=== PATIENT | female | born 1950 | race Caucasian/White ===

== ENCOUNTER 2023-09-05 15:27 | Outpatient (CLI) | payer MEDICARE, OTHER, SELFPAY | END 2023-09-05 15:28 | disposition home or self-care (01) | PROVIDERS: PCP Nurse Practitioner Family; Visit Provider Nurse Practitioner Family | DX: I48.91 Unspecified atrial fibrillation (principal); N30.90 Cystitis, unspecified without hematuria; B96.1 Klebsiella pneumoniae [K. pneumoniae] as the cause of diseases classified elsewhere; Z13.29 Encounter for screening for other suspected endocrine disorder; Z13.21 Encounter for screening for nutritional disorder | CPT/HCPCS: 80048; 83735; 84443; 87086; 87186 ==

== ENCOUNTER 2023-09-10 15:48 | Outpatient (CLI) | payer MEDICARE, OTHER, SELFPAY ==
--- NOTE | 2023-09-10 16:00 | CRLHL7_ITS ---
For Patients: As a result of the Century Cures Act, medical imaging exams and procedure reports are released immediately into your electronic medical record. You may view this report before your referring provider. If you have questions, please contact your health care provider. INDICATION: Amnesia. Fall. TECHNIQUE: Noncontrast CT images of the brain. COMPARISON: None. FINDINGS: Uvph-hr-yznbznrm diffuse cerebral volume loss. No mass effect or midline shift. The matthews-white differentiation is maintained. Small focal hypoattenuation at the right temporal pole may represent a small arachnoid cyst or encephalomalacia. No acute intracranial hemorrhage or pathologic extra-axial fluid collection. Intracranial atherosclerotic calcifications. Thinning of the ocular lenses. The calvarium is intact. Postsurgical changes of endoscopic sinus surgery. Complete opacification of the right frontal sinus and frontal recesses. Moderate opacification of ethmoid air cells. Mastoid air cells are clear. IMPRESSION: 1. No intracranial hemorrhage or mass effect. 2. Severe opacification of the right frontal sinus and frontal recesses. Please note that all CT scans at this facility use dose modulation, iterative reconstruction, and/or weight-based dosing when appropriate to reduce radiation dose to as low as reasonably achievable. Dictated by Sukhi Potts MD @ 09/11/2023 10:08:50 AM (Electronically Signed)
== END 2023-09-10 15:49 | disposition home or self-care (01) ==
PROVIDERS: PCP Nurse Practitioner Family; Visit Provider Nurse Practitioner Family
DX: R41.3 Other amnesia (principal)
CPT/HCPCS: 70450

== ENCOUNTER 2023-09-18 15:13 | Outpatient (CLI) | payer MEDICARE, OTHER, SELFPAY | END 2023-09-18 15:14 | disposition home or self-care (01) | PROVIDERS: PCP Nurse Practitioner Family; Visit Provider Nurse Practitioner Family | DX: I48.11 Longstanding persistent atrial fibrillation (principal); Z13.21 Encounter for screening for nutritional disorder; Z13.818 Encounter for screening for other digestive system disorders | CPT/HCPCS: 80076; 82607; 82728; 83540; 83550 ==

== ENCOUNTER 2023-09-26 14:50 | Outpatient (CLI) | payer MEDICARE, OTHER, SELFPAY | END 2023-09-26 14:51 | disposition home or self-care (01) | LOC: RAD 14:52 | PROVIDERS: PCP Nurse Practitioner Family; Visit Provider Nurse Practitioner Family | DX: I48.91 Unspecified atrial fibrillation (principal); I34.0 Nonrheumatic mitral (valve) insufficiency | CPT/HCPCS: 93306 ==

== ENCOUNTER 2023-11-07 10:01 | Outpatient (CLI) | payer MEDICARE, OTHER, SELFPAY ==
--- NOTE | 2023-11-07 10:15 | CRLHL7_ITS ---
For Patients: As a result of the 21st Century Cures Act, medical imaging exams and procedure reports are released immediately into your electronic medical record. You may view this report before your referring provider. If you have questions, please contact your health care provider. INDICATION: Neck pain. COMPARISON: 05/11/2014. TECHNIQUE: Sagittal T1, T2, and STIR sequences. Axial T2/gradient sequences. FINDINGS: Trace degenerative retrolisthesis of C3 on C4 measures approximate 2 mm. Normal facet alignment. No fractures. No vertebral body loss of height. No ligamentous injury. No suspicious osseous lesions. Normal cord signal. No intradural mass or lesion. C1-2: No spinal canal narrowing. C2-3: Disc generation posted disc bulge. No narrowing of spinal canal. Moderate narrowing of the right neural foramen. No narrowing of the left neural foramen. C3-4: Disk degeneration and posterior disc bulging disc osteophyte complex. Effacement of ventral thecal sac and mild narrowing of spinal canal. Moderate narrowing of bilateral foramina. C4-5: Disc generation posted disc bulging disc osteophyte complex. Mild narrowing of spinal canal. Uncovertebral joint hypertrophy results in moderate right and moderate severe left neural foraminal narrowing. Potential impingement of the left C5 nerve root. C5-6: Disc degeneration and broad-based disc osteophyte complex. Mild narrowing of spinal canal. Moderate narrowing of bilateral foramina. C6-7: Disc degeneration and posterior disc bulge. Mild narrowing of spinal canal. Moderate severe right and moderate left neural foraminal narrowing. C7-T1: No spinal canal or neural foraminal narrowing. T1-2: Disc generation posterior disc bulge. Mild narrowing of spinal canal. Moderate severe narrowing of the right neural foramen. No narrowing of the left neural foramen. Potential impingement of the right T1 nerve root. IMPRESSION: 1. Trace degenerative retrolisthesis of C3 on C4. 2. Otherwise normal alignment. No fractures 3. Normal cord signal. 4. Cervical spondylosis 5. At C2-3, moderate narrowing of the right neural foramina 6. At C4-5, moderate narrowing of the right neural foramen. Moderate to severe narrowing of the left neural foramen. Potential impingement of left C5 nerve root. 7. At C5-6, moderate narrowing of the bilateral neural foramina 8. At C6-7, moderate to severe narrowing of the right neural foramen. Moderate narrowing of the left neural foramen. Potential impingement of the right C7 nerve root. 9. At T1-2, moderate to severe narrowing of the right neural foramen. Potential impingement of the right T1 nerve root Dictated by Troy Molina MD @ 11/08/2023 11:00:10 AM (Electronically Signed)
== END 2023-11-07 10:02 | disposition home or self-care (01) ==
PROVIDERS: PCP Nurse Practitioner Family; Visit Provider Otolaryngology
DX: M54.2 Cervicalgia (principal); M47.892 Other spondylosis, cervical region; M50.21 Other cervical disc displacement, high cervical region; M50.222 Other cervical disc displacement at C5-C6 level; M50.223 Other cervical disc displacement at C6-C7 level
CPT/HCPCS: 72141

== ENCOUNTER 2023-12-11 09:57 | Outpatient (CLI) | payer MEDICARE, OTHER, SELFPAY ==
--- NOTE | 2023-12-11 10:00 | CRLHL7_ITS ---
For Patients: As a result of the Cures Act, medical imaging exams and procedure reports are released immediately into your electronic medical record. You may view this report before your referring provider. If you have questions, please contact your health care provider. INDICATION: Lung cancer screening. History of smoking. High risk patient. TECHNIQUE: Low-dose lung cancer screening non-contrast CT chest. Dose reduction techniques were used. COMPARISON: None. FINDINGS: NODULES: None. LUNGS AND PLEURA: Emphysema. Dependent areas reticular density noted bilaterally. MEDIASTINUM: Visualized thyroid unremarkable. No enlarged lymph nodes. CORONARY ARTERY CALCIFICATION: Present. LIMITED UPPER ABDOMEN: Chronic changes to the left posterior upper abdomen. Small hiatal hernia. MUSCULOSKELETAL: Postop changes at the thoracolumbar junction. Severe degenerative changes at the lower thoracic spine. Degenerative changes at both shoulders with soft tissue densities suggesting CPPD arthropathy. IMPRESSION: Negative for lung cancer screening purposes. LUNG-RADS CATEGORY: 1: Negative. RADIOLOGIST RECOMMENDATION: Continue annual screening with low-dose CT chest in 12 months. Please note that all CT scans at this facility use dose modulation, iterative reconstruction, and/or weight-based dosing when appropriate to reduce radiation dose to as low as reasonably achievable. Dictated by Fernando Trinidad MD @ 12/11/2023 12:44:56 PM (Electronically Signed)
== END 2023-12-11 09:58 | disposition home or self-care (01) ==
LOC: CT 09:58
PROVIDERS: PCP Nurse Practitioner Family; Visit Provider Nurse Practitioner Family
DX: J84.10 Pulmonary fibrosis, unspecified (principal); Z12.2 Encounter for screening for malignant neoplasm of respiratory organs; Z87.891 Personal history of nicotine dependence
CPT/HCPCS: 71271

== ENCOUNTER 2024-01-14 09:36 | Outpatient (CLI) | payer MEDICARE, OTHER, SELFPAY ==
--- NOTE | 2024-01-14 10:10 | W.ANESCHARGE ---
Anesthesia Charges Start Date/Time Anesthesia Start Date: 01/14/24 Anesthesia Start Time: 10:56 Stop Date/Time Anesthesia Stop Date: 01/14/24 Anesthesia Stop Time: 11:14 Summary Extremes of Age - Over 70 or under 1: MDA
--- NOTE | 2024-01-14 11:16 | W.ANESCHARGE ---
Anesthesia Charges Start Date/Time Anesthesia Start Date: 01/14/24 Anesthesia Start Time: 10:56 Stop Date/Time Anesthesia Stop Date: 01/14/24 Anesthesia Stop Time: 11:14 Summary Extremes of Age - Over 70 or under 1: HEALTH SCIENCE INSTRUCTOR
== END 2024-01-14 09:37 | disposition home or self-care (01) ==
LOC: OP CLINIC 09:37
PROVIDERS: PCP Nurse Practitioner Family; Visit Provider Surgery
DX: K22.70 Barrett's esophagus without dysplasia (principal); K22.89 Other specified disease of esophagus; K44.9 Diaphragmatic hernia without obstruction or gangrene
CPT/HCPCS: 00731; 43239; 88305; 99100; J2704; J3010

== ENCOUNTER 2024-09-15 15:58 | Outpatient (CLI) | payer MEDICARE, OTHER, SELFPAY | END 2024-09-15 15:59 | disposition home or self-care (01) | PROVIDERS: PCP Nurse Practitioner Family; Visit Provider Nurse Practitioner Family | DX: Z01.818 Encounter for other preprocedural examination (principal) | CPT/HCPCS: 80053; 85025 ==

== ENCOUNTER 2024-10-14 08:56 | Day surgery (SDC) | payer MEDICARE, OTHER, SELFPAY ==
[2024-10-14] VITALS (23 sets, daily range): BP systolic 105–178; BP diastolic 47–83; PULSE 37–97; RESP 10–18; TEMP 35.4–36.6; O2SAT 93–100; BMI 26.6
[2024-10-14] MEDS: LACTATED RINGERS 1000 ML 1,000 ML 100 ML IV (09:05)
[2024-10-14] MEDS: ACETAMINOPHEN 500 MG TABLET 1000 MG PO ×3 (09:25→21:03)
[2024-10-14] MEDS: CELECOXIB 200 MG CAPSULE PO (09:25)
[2024-10-14] MEDS: OXYCODONE (CR) 10 MG TAB.ER.12H PO (09:25)
[2024-10-14] MEDS: SODIUM CHLORIDE 0.9 % (FLUSH) 10 ML SYRINGE IVF (09:42)
[2024-10-14] MEDS: MIDAZOLAM HCL 1 MG/ML inj IVP (10:35)
--- NOTE | 2024-10-14 10:44 | SUR.PREOP ---
TIME?OUT:?1035 PT/adamaris nugent RN/larissa liu MDA?VERIFICATION?OF?SURGICAL?SITE,?PROCEDURE,?AND?CONSENT OBTAINED?PRIOR?TO?INVASIVE?PROCEDURE.
--- NOTE | 2024-10-14 10:45 | CRLHL7_ITS ---
For Patients: As a result of the Cures Act, medical imaging exams and procedure reports are released immediately into your electronic medical record. You may view this report before your referring provider. If you have questions, please contact your health care provider. Indication: Hip replacement surgery Technique: AP hip fluoroscopic image. Fluoroscopy time 91.6 seconds. Findings/Impression: Hardware from a right total hip arthroplasty is in satisfactory position. Dictated by Fernando Trinidad MD @ 10/14/2024 2:46:43 PM (Electronically Signed)
--- NOTE | 2024-10-14 10:53 | P.ANES_ITS ---
Anesthesia Charges Start Date/Time Anesthesia Start Date: 10/14/24 Anesthesia Start Time: 10:43 Stop Date/Time Anesthesia Stop Date: 10/14/24 Anesthesia Stop Time: 13:09 Summary Extremes of Age - Over 70 or under 1: MDA Coding CPT Codes CPT Codes: ANESTH HIP ARTHROPLASTY - 87214 ([id number]) P3 - PATIENT W/SEVERE SYS DISEASE, QK - PNEUMATIC DRUM SANDER 2-4 CNCRNT ANES PROC, QX - ETHYLENE PLANT OPERATOR SVC W/ MD MED DIRECTION Additional Codes: Summary - Extremes of Age - Over 70 or under 1: MDA ([id number])
--- NOTE | 2024-10-14 10:53 | W.ANESCHARGE ---
Anesthesia Charges Start Date/Time Anesthesia Start Date: 10/14/24 Anesthesia Start Time: 10:43 Stop Date/Time Anesthesia Stop Date: 10/14/24 Anesthesia Stop Time: 13:09 Summary Extremes of Age - Over 70 or under 1: MDA Coding CPT Codes CPT Codes: ANESTH HIP ARTHROPLASTY - 84775 ([id number]) P3 - PATIENT W/SEVERE SYS DISEASE, QK - ART DEALER 2-4 CNCRNT ANES PROC, QX - SVP SVC W/ MD MED DIRECTION Additional Codes: Summary - Extremes of Age - Over 70 or under 1: MDA ([id number])
--- NOTE | 2024-10-14 10:54 | P.NB_ITS ---
Nerve Block Nerve Block Time Seen by Provider: 10:40 Date Seen: 10/14/24 Type of block requested by surgeon for post-operative analgesia: GEENA/LFCN Side: right Time out performed: Yes Verification of patient name: Yes Verification of date of : Yes Site marking: site marked Name of person performing procedure: Fernando Continuous monitoring Was continuous monitoring of O2 sat, B/P, bus driver/monitor, recorded every 15 minutes?: Yes Procedure Checklist: sterile prep, needles and gloves Ultrasound guided. Images saved: Yes Medications given in 5ml increments after negative aspiration: Ropivicaine %: 0.5 mL: 30 Needle gauge: 20 Precedex (mcg): 25 Patient tolerated procedure well: Yes Additional comments: Needle noted below psoas tendon needle noted adjacent to LFCN Block Charges Block Charge (with Pro Fee): Other Periph Nerve Block Use of Ultrasound Machine for Block: Yes- US Guidance/pain block
--- NOTE | 2024-10-14 12:32 | CRLHL7_ITS ---
For Patients: As a result of the Cures Act, medical imaging exams and procedure reports are released immediately into your electronic medical record. You may view this report before your referring provider. If you have questions, please contact your health care provider. Indication: POST OP Technique: AP hip centered pelvis and lateral view right hip Findings/Impression: Hardware from a right total hip arthroplasty is in satisfactory position. Bone alignment is normal. No sign of acute fracture. Postop changes are within normal limits. Dictated by Fernando Trinidad MD @ 10/15/2024 9:24:03 AM (Electronically Signed)
--- NOTE | 2024-10-14 12:35 | PM.ORPRC ---
Procedure Note Date of procedure: 10/14/24 Procedure: PREOPERATIVE DIAGNOSIS: Right hip osteoarthritis POSTOPERATIVE DIAGNOSIS: Right hip osteoarthritis NAME OF OPERATION: Right total hip arthroplasty SURGEON: Robert Mariscal MD FIRE OPERATIONS FORESTER: Aimee Knowles PA-C, SAUMYA Chapman IMPLANTS: 1. [employer] [place] # 52 sector ingrowth cup 2. 36 x 52 +4 neutral polyethylene 3. Actis # 9 standard collared ingrowth stem 4. 36 -2 ceramic femoral head ANESTHESIA: Spinal ESTIMATED BLOOD LOSS: 270 cc COMPLICATIONS: None SPECIMENS: None DRAINS: None PREOPERATIVE ANTIBIOTICS: Ancef 1 g INDICATIONS: The patient is a 74-year-old with a longstanding history of severe, unrelenting right hip pain secondary to end-stage right hip osteoarthritis. Despite appropriate nonoperative management, including activity modification, use of an assist device, anti-inflammatories, bqjo-qpt-hobtzku pain medication, physical therapy and injections, they continue to have pain and disability. Operative intervention was offered. The risks, benefits and expected outcomes were discussed in detail. These included but were not limited to: Infection, bleeding, injury to blood vessel or nerve, venous thromboembolism. All questions were answered to their satisfaction. Use of an assistant plant controller was necessary throughout the case for patient positioning and safety, soft tissue retraction and closure. PROCEDURE: Spinal anesthesia was administered. The patient was placed supine on the Morgan table. The assistant plant controller made sure the patient was properly positioned. The right hip was prepped and draped in the usual sterile fashion. The image intensifier was brought in for a perfect AP pelvis and a perfect double tear drop AP view of each hip which were used for intraoperative templating with our fluoroscopic guide. An oblique incision was made 3 cm distal and 3 cm lateral to the anterior superior iliac spine. The assistant plant controller retracted the soft tissues to protect them. Subcutaneous dissection was taken with electrocautery to the superficial fascia. The fascia was divided in line with the incision. Blunt dissection was carried medially to the tensor fascia annabella and sartorius interval. Deep dissection was carried with electrocautery. The circumflex vessels were cauterized and divided. The capsule was exposed and then divided in a T-fashion, tagged with #1 FiberWire sutures. Retractors were placed in the joint, held by the assistant plant controller. The corkscrew was placed in the femoral head. The neck cut was made in the subcapital region. We made a second neck cut more distal. The napkin ring of bone was removed. The femoral head was removed intact. Acetabular retractors were placed, held by the assistant plant controller. The labrum was sharply debrided. The capsule was released. The 43 mm reamer was used to the true medial wall. We then enlarged in 2 mm increments using the image intensifier for our reamer placement. We impacted the cup which had excellent purchase. We placed the polyethylene. Attention was then turned to the proximal femur. The limb was placed in 140 degrees of external rotation, maximum extension and adduction. A significant amount of time was spent releasing the capsule to allow us to deliver the femur into the wound and complete the femoral side safely. Retractors were held by the assistant plant controller throughout the femoral preparation. The coin box collector and canal finder were used. Broaches were used to a stable size. The calcar reamer was used. Trial components were placed. The hip was reduced and was found to be stable with appropriate soft tissue tension. Length and offset had been nicely restored using the image intensifier and our fluoroscopic guide. Trial components were removed. The stem was impacted. We placed the femoral head. Again, the hip was reduced and was found to be stable with appropriate soft tissue tension. Length and offset had been nicely restored. The assistant plant controller did a three minute dilute Betadine solution soak. The assistant plant controller irrigated the wound with 3 liters of normal saline via pulse lavage. The assistant plant controller repaired the anterior capsule with a #1 Vicryl and our previously placed Ethibond sutures. The assistant plant controller closed the fascia over the tensor fascia annabella with a #1 PDO Stratafix, subcutaneous tissues with 2-0 Vicryl, skin with a running 3-0 Stratafix and glue. A dry dressing was applied by the assistant plant controller. Sponge and needle counts were correct x 2. The patient tolerated the procedure well; there were no apparent complications. They were awakened and extubated in the operating room, sent to the Post-Anesthesia Care Unit in satisfactory condition. PLAN: 1. The patient will be mobilized with physical therapy, weight-bearing as tolerates 2. Xarelto x 5 days then aspirin x 30 days will be used for DVT prophylaxis 3. The patient will be discharged once medically appropriate
--- NOTE | 2024-10-14 13:07 | P.ANES_ITS ---
Anesthesia Charges Start Date/Time Anesthesia Start Date: 10/14/24 Anesthesia Start Time: 10:43 Stop Date/Time Anesthesia Stop Date: 10/14/24 Anesthesia Stop Time: 13:09 Summary Extremes of Age - Over 70 or under 1: CLINIC SPECIALIST Coding CPT Codes CPT Codes: ANESTH HIP ARTHROPLASTY - 39742 ([id number]) P3 - PATIENT W/SEVERE SYS DISEASE, QK - CLOTH SPONGER 2-4 CNCRNT ANES PROC, QX - CLINIC SPECIALIST SVC W/ MD MED DIRECTION Additional Codes: Summary - Extremes of Age - Over 70 or under 1: CLINIC SPECIALIST ([id number])
--- NOTE | 2024-10-14 13:07 | W.ANESCHARGE ---
Anesthesia Charges Start Date/Time Anesthesia Start Date: 10/14/24 Anesthesia Start Time: 10:43 Stop Date/Time Anesthesia Stop Date: 10/14/24 Anesthesia Stop Time: 13:09 Summary Extremes of Age - Over 70 or under 1: LEAD PERSON Coding CPT Codes CPT Codes: ANESTH HIP ARTHROPLASTY - 15357 ([id number]) P3 - PATIENT W/SEVERE SYS DISEASE, QK - PANTOGRAPH SETTER 2-4 CNCRNT ANES PROC, QX - LEAD PERSON SVC W/ MD MED DIRECTION Additional Codes: Summary - Extremes of Age - Over 70 or under 1: LEAD PERSON ([id number])
[2024-10-14] MEDS: LACTATED RINGERS 1000 ML 1,000 ML 75 ML IV (14:10)
[2024-10-14] MEDS: ONDANSETRON 2 MG/ML inj 4 MG IVP (14:11)
--- NOTE | 2024-10-14 15:04 | P.IMCN_ITS ---
Date of Consult Patient: [facility] Patient Consult date: 10/14/24 Primary Care Provider: Dea Nichols, SALES ATTENDANT [employer], BASS SINGER Consult Narrative Narrative: Nila Mcgraw is a 74 year old female admitted to the hospital for right total hip arthroplasty. Procedures performed by Dr. Mariscal without complications. He is requesting consultation for management of medical problems following surgery. Postoperatively she reports having some discomfort in her right hip but otherwise feeling well. She was cold after surgery but has been warmed up with a Ashley Hugger. No nausea or dyspnea. Patient has dementia and has a hard time giving me any information about history. Her niece is present and answers most of the questions. No recent illness or injury. She had a preop physical on September 29 and no other perioperative concerns were addressed other than that the patient is going to be staying with her niece immediately postop. Review of Systems Narrative: No recent illness or injury [facility] Medical History (Updated 10/14/24 @ 15:40 by Nam Escalante MD) Osteoarthritis of right hip ?M16.11 - Unilateral primary osteoarthritis, right hip (ICD-10) Frequent falls ?R29.6 - Repeated falls (ICD-10) Allergies ?T78.40XA - Allergy, unspecified, initial encounter (ICD-10) Frequent sinus infections ?J32.9 - Chronic sinusitis, unspecified (ICD-10) Chronic midline low back pain without sciatica ?M54.50 - Low back pain, unspecified (ICD-10) ?G89.29 - Other chronic pain (ICD-10) Spinal stenosis ?M48.00 - Spinal stenosis, site unspecified (ICD-10) Reactive airway disease ?J45.909 - Unspecified asthma, uncomplicated (ICD-10) Osteoporosis ?M81.0 - Age-related osteoporosis without current pathological fracture (ICD- 10) Hx of hiatal hernia ?Z87.19 - Personal history of other diseases of the digestive system (ICD-10) Hx of scoliosis ?Z87.39 - Personal history of other diseases of the musculoskeletal system and connective tissue (ICD-10) Calcified granuloma of lung ?J84.10 - Pulmonary fibrosis, unspecified (ICD-10) Mild emphysema ?J43.9 - Emphysema, unspecified (ICD-10) Hepatic steatosis ?K76.0 - Fatty (change of) liver, not elsewhere classified (ICD-10) Preoperative examination ?Z01.818 - Encounter for other preprocedural examination (ICD-10) Dementia ?F03.90 - Unspecified dementia, unspecified severity, without behavioral disturbance, psychotic disturbance, mood disturbance, and anxiety (ICD-10) History of atrial fibrillation ?Z86.79 - Personal history of other diseases of the circulatory system (ICD- 10) History of colon cancer ?Z85.038 - Personal history of other malignant neoplasm of large intestine (ICD-10) Diverticulosis ?K57.90 - Diverticulosis of intestine, part unspecified, without perforation or abscess without bleeding (ICD-10) GERD with stricture ?K21.9 - Gastro-esophageal reflux disease without esophagitis (ICD-10) ?K22.2 - Esophageal obstruction (ICD-10) Degenerative joint disease ?M19.90 - Unspecified osteoarthritis, unspecified site (ICD-10) Allergic rhinitis ?J30.9 - Allergic rhinitis, unspecified (ICD-10) Asthma ?J45.909 - Unspecified asthma, uncomplicated (ICD-10) Morton's esophagus without dysplasia ?K22.70 - Morton's esophagus without dysplasia (ICD-10) Colon polyp ?K63.5 - Polyp of colon (ICD-10) Encounter for screening laboratory testing for severe acute respiratory syndrome coronavirus 2 (SARS-CoV-2) ?Z20.822 - Contact with and (suspected) exposure to COVID-19 (ICD-10) Surgical History (Updated 10/14/24 @ 15:39 by Nam Escalante MD) Status post total replacement of right hip ?Z96.641 - Presence of right artificial hip joint (ICD-10) History of esophagogastroduodenoscopy (EGD) ?Z98.890 - Other specified postprocedural states (ICD-10) S/P right colectomy ?Z90.49 - Acquired absence of other specified parts of digestive tract (ICD- 10) History of back surgery (~2013) ?Z98.890 - Other specified postprocedural states (ICD-10) History of tonsillectomy ?Z90.89 - Acquired absence of other organs (ICD-10) History of back surgery (~1973) ?Z98.890 - Other specified postprocedural states (ICD-10) 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 She lives alone. Her niece, Selma Hernandez, is closest family. Patient will be living with Selma for a few days after discharge from the hospital. Selma is healthcare power of assistant prosecuting attorney. Quit smoking 2017. Single. No children. Alcohol, uncertain how often, apparently not daily. No illicit drug use. The patient stays active around her yard. Full code. What is your current living situation?: I presently have a place to live In the past 12 months, utilities in danger of being shut off: no In past 12 months, lack of transportation kept you from medical appts, meetings, work, or getting things needed for daily living: no Smoking Status: Never smoker Do you use any of these nicotine containing products: None Second hand tobacco smoke exposure: No How often do you have a drink containing alcohol: monthly or less AUDIT-C Alcohol total score: 1 Non-prescribed substance use: denies use Caffeine: Yes How often does anyone, including family, friends and others, physically hurt you : never How often does anyone, including family, friends and others, insult or talk down to you: never How often does anyone, including family, friends and others, threaten you with harm: never How often does anyone, including family, friends and others, scream or curse at you: never Meds Home Medications and Allergies Home Medications ?Medication ?Instructions ?Recorded ?Confirmed ?Type albuterol sulfate 90 mcg/actuation 1 inh inhalation Q4 -6H PRN 10/26/21 10/14/24 History breath activated powder inhaler fluticasone propionate 50 1 spray intranasal DAILY PRN 10/26/21 10/14/24 History mcg/actuation nasal spray,suspension (Allergy Relief (fluticasone)) omeprazole 40 mg capsule,delayed 40 mg PO DAILY #90 ca ps 03/20/24 10/14/24 Rx release acetaminophen 500 mg capsule 500 - 1,000 mg (1 - 2 x 5 00 mg) PO 10/14/24 Rx Q6H PRN pain #100 caps aspirin 81 mg chewable tablet 81 mg PO BID for DVT pro phylaxis 10/14/24 Rx (Aspirin Childrens) 30 days #60 tabs oxycodone 5 mg tablet 2.5 - 5 mg (0.5 - 1 x 5 mg) PO 10/14/24 Rx Q4-6H PRN Pain #42 tabs rivaroxaban 10 mg tablet (Xarelto) 10 mg PO DAILY DVT prophylaxis 4 10/14/24 Rx days #4 tabs sennosides 8.6 mg tablet (Senna 17.2 mg (2 x 8.6 mg) P O BID PRN 10/14/24 Rx Lax) constipation #100 tabs Allergies Allergy/AdvReac Type Severity Reaction Status Date / Time No Known Allergies Allergy Verified 10/14/24 09:34 Exam Narrative: Exam Narrative: She is alert and appears in no distress. Speech is fluent. She is unable to answer most questions about medical history including past medical history, surgeries, medications. No facial asymmetry. Oropharynx with dry mucous membranes. Neck is supple without mass or adenopathy. Respirations are clear to auscultation. Cardiovascular: S1, S2, regular rate and rhythm. Abdomen: Bowel sounds active. Abdomen is soft without tenderness or mass. Right hip without obvious bruising swelling or redness. Distally she has intact pulses and sensation. No edema. She moves her feet and ankles well. Const: Vital Signs, click to edit/add: Vital Signs - 24 hr 10/14/24 09:35 10/14/24 10:35 10/14/24 13:04 Temperature 97.6 F 95.7 F L Pulse Rate 61 57 L 69 Respiratory Rate 18 18 12 Blood Pressure 178/83 H 167/71 H 123/61 Pulse Oximetry 97 98 95 Oxygen Delivery Me thod Room Air Nasal Cannula Room Air Oxygen Flow Rate 3 10/14/24 13:09 10/14/24 13:14 10/14/24 13:19 Temperature 95.8 F L Pulse Rate 74 71 66 Respiratory Rate 12 10 L 14 Blood Pressure 111/59 L 123/61 114/64 Pulse Oximetry 93 96 97 Oxygen Delivery Me thod Room Air Room Air Room Air Oxygen Flow Rate 10/14/24 13:24 10/14/24 13:31 10/14/24 13:42 Temperature 95.8 F L 96.0 F L Pulse Rate 65 69 64 Respiratory Rate 12 12 16 Blood Pressure 120/65 123/61 131/75 Pulse Oximetry 95 95 96 Oxygen Delivery Me thod Room Air Room Air Room Air Oxygen Flow Rate 10/14/24 13:57 10/14/24 14:12 10/14/24 14:27 Temperature 96.2 F L 96.4 F L 96.4 F L Pulse Rate 55 L 62 59 L Respiratory Rate 16 18 16 Blood Pressure 131/60 145/69 H 136/60 Pulse Oximetry 97 96 97 Oxygen Delivery Me thod Room Air Room Air Room Air Oxygen Flow Rate 10/14/24 14:57 Temperature 96.5 F L Pulse Rate 60 Respiratory Rate 16 Blood Pressure 127/65 Pulse Oximetry 96 Oxygen Delivery Me thod Room Air Oxygen Flow Rate Documenting provider has reviewed patient's vital signs: yes Assessment and Plan Assessment and plan (1) Status post total replacement of right hip: Problem comment: 10/14/2024. Dr. Mariscal. No complications. Status: Acute (2) Dementia: Problem comment: Slums score from December 2022 was 24. Recommended reassessment of ability to care for herself independently. [place]. Status: Acute (3) Mild emphysema: Problem comment: Subpleural scarring noted within the lingula and left lower lobe. Currently not symptomatic Status: Acute (4) Osteoporosis: Problem comment: Not currently on treatment Status: Acute (5) History of atrial fibrillation: Problem comment: Diagnosed in each 2023. 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 No symptoms. Preop electrocardiogram for this surgery shows sinus bradycardia. September of 2023 she had a relatively normal echo. Status: Acute Plan Patient is been the hospital for right hip arthroplasty and postoperative care. Will do ongoing assessment of above problems, particularly cognitive status and ability to manage ADLs. Total Time Spent Total Time Spent: Total time spent is 45 minutes in reviewing outside records, coordination of care and discussing with patient and niece ongoing evaluation management of chronic medical problems, disabilities and recovery from hip surgery
--- NOTE | 2024-10-14 15:24 | PC.NURSE ---
End of shift report [id number]: Pleasant and cooperative with cares. Alert and oriented x 4 with mild confusion to date and time. Dressing to right hip clean, dry and intact. Pain reported to right hip and low back, patient has ice pack applied to hip and back and PRN medications administered with minimal relief of pain. CMS to RLE intact, mild weakness to right leg from spinal. Diet advanced, denies any nausea or vomiting. Lung sounds clear bilaterally to auscultation. PT present and assisted patient to BSC and into chair to assist with pain relief to low back. Rochelle Hahn present, no concerns at this time.
[2024-10-14] MEDS: CEFAZOLIN 1 GM in 0.9 % SODIUM CHLORIDE Mini-bag 100 ML IVPB (16:40)
[2024-10-14] MEDS: LACTATED RINGERS 500 ML 500 ML IV (17:13)
[2024-10-14] MEDS: SENNOSIDES 1 TAB TABLET 2 TAB PO (21:03)
--- NOTE | 2024-10-14 21:53 | PC.NURSE ---
Patient admit for Right total hip. Patient is up with assist of one, gait belt, and walker. Patient tolerating a regular diet with minimal intake due to lack of appetite so IV fluids infusing @ 75 in the Right forearm. Patient utilizing bed and chair alarm for safety. she is managing her pain with scheduled and prn medications as well as active ice.
--- NOTE | 2024-10-14 22:53 | PC.NURSE ---
Late entry from 1640: HR noted to be decreasing to low 40's and briefly upper 30's. See EMR for B/P. Dr. Escalante updated on HR, B/P, status. Patient denies symptoms and is sitting in chair. EKG completed, tele initiated, and bolus ordered/given.
[2024-10-15] MEDS: CEFAZOLIN 1 GM in 0.9 % SODIUM CHLORIDE Mini-bag 100 ML IVPB (01:36)
[2024-10-15 02:43] VITALS: BP 135/61; PULSE 57; RESP 18; TEMP 36.7; O2SAT 95
[2024-10-15] MEDS: ACETAMINOPHEN 500 MG TABLET 1000 MG PO ×2 (03:09→10:44)
[2024-10-15 06:25] LABS: Hemoglobin* 11.0 gm/dL (12.0-16.0)
[2024-10-15 07:57] VITALS: PULSE 66; RESP 16; O2SAT 94
--- NOTE | 2024-10-15 07:58 | PC.NURSE ---
I took on care of the patient at 2300 to find them in a stable state of health but in a deep state of delirium. Dementia in the current health history. They have been very restless. Communication has been difficult for the patient with word finding. Pain is present in the right hip. Oxycodone and Tylenol given in the morning. Able to ambulate stand by assist with a rolling walker. They pulled out their IV once in confusion and they have often pulled off their heart monitor during this shift. Notable episodic states of emotional distress related to confusion and apparent despair. Heart rate has been seen to shoot up to 120 during these times but otherwise remains in a normal range. This patient was in a stable state of health at time of transfer of care. ?
[2024-10-15] MEDS: OMEPRAZOLE 20 MG CAPSULE DR 40 MG PO (08:02)
[2024-10-15] MEDS: SENNOSIDES 1 TAB TABLET 2 TAB PO (08:02)
[2024-10-15] MEDS: RIVAROXABAN 10 MG TABLET PO (08:03)
[2024-10-15 08:07] VITALS: BP 101/52; PULSE 66; RESP 16; TEMP 37.1; O2SAT 94
--- NOTE | 2024-10-15 08:14 | PM.ORPN ---
Subjective Subjective Time Seen by Provider: 07:30 Date Seen: 10/15/24 Principal diagnosis: Status post right hip replacement Interval history: Dipika is planning to discharge to home with her niece. She has pain in her hip which makes getting in and out of bed, in and out of a chair and ambulating difficult. Ortho Exam Narrative Exam Narrative: Alert and conversive. Difficulty staying on track with conversation. Patient is in no acute distress. Converses without labored breathing. Hearing is grossly intact. Ambulates with a walker. Examination of the right hip shows the dressing is intact. Mild edema. She is able to plantar flex and dorsiflex her ankle. Bilateral calves are soft and nontender. CMS intact right lower extremity. Const Vital Signs, click to edit/add: Vital Signs - 24 hr 10/14/24 09:35 10/14/24 10:35 10/14/24 13:04 Temperature 97.6 F 95.7 F L Pulse Rate 61 57 L 69 Pulse Rate [Pulse Oximeter] Pulse Rate [Right Dorsalis Pedis] Respiratory Rate 18 18 12 Blood Pressure 178/83 H 167/71 H 123/61 Blood Pressure [Left Arm] Pulse Oximetry 97 98 95 Oxygen Delivery Method Room Air Nasal Cannula Room Air Oxygen Flow Rate 3 10/14/24 13:09 10/14/24 13:14 10/14/24 13:19 Temperature 95.8 F L Pulse Rate 74 71 66 Pulse Rate [Pulse Oximeter] Pulse Rate [Right Dorsalis Pedis] Respiratory Rate 12 10 L 14 Blood Pressure 111/59 L 123/61 114/64 Blood Pressure [Left Arm] Pulse Oximetry 93 96 97 Oxygen Delivery Method Room Air Room Air Room Air Oxygen Flow Rate 10/14/24 13:24 10/14/24 13:31 10/14/24 13:42 Temperature 95.8 F L 96.0 F L Pulse Rate 65 69 64 Pulse Rate [Pulse Oximeter] Pulse Rate [Right Dorsalis Pedis] Respiratory Rate 12 12 16 Blood Pressure 120/65 123/61 131/75 Blood Pressure [Left Arm] Pulse Oximetry 95 95 96 Oxygen Delivery Method Room Air Room Air Room Air Oxygen Flow Rate 10/14/24 13:57 10/14/24 14:12 10/14/24 14:27 Temperature 96.2 F L 96.4 F L 96.4 F L Pulse Rate 55 L 62 59 L Pulse Rate [Pulse Oximeter] Pulse Rate [Right Dorsalis Pedis] Respiratory Rate 16 18 16 Blood Pressure 131/60 145/69 H 136/60 Blood Pressure [Left Arm] Pulse Oximetry 97 96 97 Oxygen Delivery Method Room Air Room Air Room Air Oxygen Flow Rate 10/14/24 14:57 10/14/24 15:00 10/14/24 15:00 Temperature 96.5 F L Pulse Rate 60 Pulse Rate [Pulse Oximeter] Pulse Rate [Right Dorsalis Pedis] Respiratory Rate 16 16 Blood Pressure 127/65 Blood Pressure [Left Arm] Pulse Oximetry 96 96 Oxygen Delivery Method Room Air Room Air Oxygen Flow Rate 10/14/24 15:27 10/14/24 16:27 10/14/24 17:00 Temperature 96.8 F L 96.8 F L 97.1 F L Pulse Rate 60 48 L 43 L Pulse Rate [Pulse Oximeter] Pulse Rate [Right Dorsalis Pedis] Respiratory Rate 16 16 14 Blood Pressure 106/52 L 105/47 L 117/53 L Blood Pressure [Left Arm] Pulse Oximetry 96 98 95 Oxygen Delivery Method Room Air Room Air Oxygen Flow Rate 10/14/24 17:30 10/14/24 18:27 10/14/24 19:25 Temperature 96.7 F L 96.7 F L 97.1 F L Pulse Rate 54 L 37 L 44 L Pulse Rate [Pulse Oximeter] Pulse Rate [Right Dorsalis Pedis] Respiratory Rate 14 14 14 Blood Pressure 121/56 L 113/70 135/55 L Blood Pressure [Left Arm] Pulse Oximetry 98 98 100 Oxygen Delivery Method Room Air Room Air Room Air Oxygen Flow Rate 3 3 10/14/24 22:10 10/14/24 23:00 10/14/24 23:00 Temperature Pulse Rate 43 L 51 L Pulse Rate [Pulse Oximeter] 95 Pulse Rate [Right Dorsalis Pedis] Respiratory Rate Blood Pressure Blood Pressure [Left Arm] Pulse Oximetry Oxygen Delivery Method Oxygen Flow Rate 10/14/24 23:40 10/14/24 23:40 10/15/24 02:43 Temperature 98 F 98.1 F Pulse Rate Pulse Rate [Pulse Oximeter] 97 57 L Pulse Rate [Right Dorsalis Pedis] Respiratory Rate 16 16 18 Blood Pressure Blood Pressure [Left Arm] 116/60 135/61 Pulse Oximetry 97 98 95 Oxygen Delivery Method Room Air Room Air Room Air Oxygen Flow Rate 10/15/24 08:07 Temperature 98.7 F Pulse Rate Pulse Rate [Pulse Oximeter] Pulse Rate [Right Dorsalis Pedis] 66 Respiratory Rate 16 Blood Pressure Blood Pressure [Left Arm] 101/52 L Pulse Oximetry 94 Oxygen Delivery Method Room Air Oxygen Flow Rate Assessment and Plan Assessment and plan (1) Status post total replacement of right hip: Problem details: Right total hip arthroplasty (10/14/2024, Dr. Mariscal) Status: Acute Assessment and Plan: Plan for discharge is today if she meets discharge criteria. DVT prophylaxis upon discharge includes Xarelto 10mg daily for a total of 5 days, then Aspirin 81mg twice daily for 30 days. Remove dressing 1 week. Observe wound and phone Orthopedics with any questions or concerns Use Ice on operative hip unrestricted. Return to clinic in 7-10 days for a wound check Return to clinic in 6 weeks with surgeon Minimize narcotic use. Wean off and discontinue soon as possible. Activities as tolerated. No strenuous activity. 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 Will see how she does with PT and OT this morning. She is planning on going home with her niece. We discussed that she will likely have several days of more intense pain before her pain level decreases. She has dementia. She will need someone with her 24 hours a day and to assist her with postoperative meds.
[2024-10-15 10:25] VITALS: PULSE 69
--- NOTE | 2024-10-15 11:57 | PC.NURSE ---
Discharge: Patient pleasant and cooperative, oriented to self only. Patient vitally stable, lungs clear, BS WNL, IV removed, catheter intact. Patient right hip dressing C/D/I, active ice applied. Patient does not clearly rate pain, but it more agitated with activity. Scheduled Tylenol given and 5mg of oxy given x2. Patient tolerating regular diet but with poor appetite, patient also urinating well, no BM. Patient is 1 assist/walker. Patient's POA signed belongings sheet and discharge form, patient nor POA had further questions regarding education. Patient left the floor to home by wheelchair with belongings and POA at 1106.
== END 2024-10-15 11:06 | disposition home or self-care (01) ==
LOC: OR 09:00 → MEDSURG 09:06
PROVIDERS: Family Medicine; PCP Nurse Practitioner Family; Visit Provider Orthopaedic Surgery
PROC: (CPT 27130; principal; 2024-10-14 10:45)
DX: M16.11 Unilateral primary osteoarthritis, right hip (principal); G89.18 Other acute postprocedural pain; F03.90 Unspecified dementia, unspecified severity, without behavioral disturbance, psychotic disturbance, mood disturbance, and anxiety; J43.9 Emphysema, unspecified; M81.0 Age-related osteoporosis without current pathological fracture; Z86.79 Personal history of other diseases of the circulatory system; Z79.82 Long term (current) use of aspirin
CPT/HCPCS: 27130; 01214; 36415; 64450; 73501; 76942; 85018; 86850; 86900; 86901; 97110; 97116; 97161; 97166; 97530; 97535; 99100; A9270; C1776; J0690; J1100; J1171; J2250; J2371; J2405; J2704; J2795; J3010; J7120

== ENCOUNTER 2024-11-11 13:00 | Outpatient (RCR) | payer MEDICARE, OTHER, SELFPAY ==
--- NOTE | 2024-10-21 15:01 | PT.OPEX ---
PT [place] Outpatient Eval PT [place] Outpatient Eval Start: 10/21/24 11:45 Freq: Status: Active Protocol: Document 10/21/24 12:59 NLR (Rec: 10/21/24 14:06 NLR [id number]) E-signed By Cora Robbins DPT Physical Therapy Outpatient Evaluation Insurance Information Recert Due Date 01/19/25 Insurance Name Medicare B Medical Diagnosis Z96.641 Presence of R DIANNA Treating Diagnosis M25.551 Right hip pain M25.651 Right hip stiffness M62.551 Right thigh weakness Imaging Report 10/14/24 R DIANNA, WBAT; on DVT prophylaxis (Xarelto) for Information 30 days; dementia/needs 24 hour supervision for meds Referring MD Agustin Mariscal MD Subjective Preferred Name FORTINO Subjective Fortino arrives for PT evaluation s/p R DIANNA with Dr. Mariscal on 10/14/24. She is accompanied by her niece Selma. She has some surgical pain but is unable to quantify. She has been having to lift her leg with her arms for bed and car transfers. She is able to dress herself except shoes and she needs a little help getting R pantleg on. Pain Comments Right hip surgical pain. Date of Last 10/14/24 Physician Visit Date of Next 10/21/24 Physician Visit Date of Surgery (If 10/14/24 applicable) Current Work Status Retired Occupation Fortino lives alone in a house with several steps to get into the house and then other set of steep steps to go to the basement (laundry, crafts, cat litter). Bedroom and bathroom are on the main floor. Family is able to help her manage medications. She is currently live with her niece Selma in an apartment in the basement of her parent's house. No stairs, to get in, all one level (full family right now). Precautions Treatment Dementia, her confusion is worse right now following Precautions/ surgery so she is living with her niece temporarily. Contraindications Weight Bearing Weight Bear as Tolerated Status Therapy Limitations/ Communication Ability,Cognition Systems Review Objective Other/Pertinent HAND DOM: RHD Objective ROM: R hip 10 to 90 flexion, R LE WFL STRENGTH: R quads, hip abductors, hip adductors 3/5, L LE WFL POSTURE: Significant forward rounding with dowager's hump, has rods in mid back. PALPATION: Patient exhibits tenderness to palpation at R thigh EDEMA: R foot +2 mildly pitting - suggested 15-20mmHg compression sock FUNCTIONAL: Sit to/from stand modified I, sit to/from supine minimal assistance of one GAIT: Slow WBAT with FWW (adjusted down 2 notches as it was too high - still high but appropriate for her kyphosis), up and down 6 steps with minimal assistance of one and one railing FLEXIBILITY: Hypoflexibility noted at R hip flexors - resisting laying flat FOOTWEAR: Patient arrives wearing slip on moccasins OTHER PMH: Dementia, AFib Assessment Assessment/ Fortino is a 74-year-old female who presents for skilled Impression PT evaluation presenting with right hip pain and stiffness and right thigh weakness which is consistent with R DIANNA in the setting of advance hip OAA. Patient is an appropriate candidate for skilled physical therapy to target deficits described above. Skilled PT intervention is necessary to achieve goals as stated. D /C plan and criteria is for patient to achieve the goals as outlined or until max rehab potential is met. Patient was agreeable with plan of care and goals established. This evaluation is of medium complexity due to the changing nature of the patient?s presentation as well as the comorbidities and medical factors included in this evaluation. Primary Functional Difficulty walking without gait aid, difficulty with Limitations bed transfers, difficulty with stairs Plan of Care Rehabilitation Good Potential Rehabilitation The patient's rehab potential is likely limited due to Potential Comments co-morbidities of advanced age, extremely poor posture, lack of situational orientation, multiple (3+) concurring contributing factors. Physical Therapy 1. Patient will be independent with home exercise Goals program as instructed, modified and progressed by physical therapist in order to be independently and actively participating in their rehabilitation and return to prior level of function. Goal to be achieved by 01/16/2025. 2. Patient will demonstrate ability to walk for 30 minutes(s) without significant increase in pain greater than 2/10 to allow patient to be able to safely and independently return to participation in desired level of function with daily activities such general housekeeping, going to appointments, walking for exercise without pain or difficulty. Goal to be achieved by 01/16/2025. 3. Patient will ascend/descend 2 full flight(s) of stairs with [id number] pattern without significant increase in difficulty or pain over 2/10 allowing for safe and independent mobility through their home/work environment. Goal to be achieved by 01/16/2025. Coordination/ Referral Source Communication With Treatment Plan/ Compression Garments,Gait Training,Manual Therapy, Direct Interventions Neuromuscular Re-ed,Self-Care/Home Management, Therapeutic Activities,Therapeutic Exercises Frequency/Duration 1X/week for 4-8 weeks Patient Will Be Completion of LTG(s),Skills Plateau,Independent w/HEP, Discharged From Independently Progressing Therapy Discharge Plan DC with HEP Comments Evaluation Billing Untimed Code 20 Treatment Minutes PT Eval No Charge No Complexity Moderate Certification Information Initial 10/21/24 Certification Date Ending Certification 01/19/25 Date Provider Signature Yes Required Provider Signature POC & Medical Necessity Shows Agreement With Physician NPI Number Write NPI# Here Physician Comment/ : Change Physician Signature Please Sign/Date Here & Date Requested
--- NOTE | 2024-11-11 14:14 | PT.OPDNX ---
PT [facility] Daily [facility] PT [facility] Daily Note Start: 10/21/24 11:45 Freq: Status: Active Protocol: Document 11/11/24 13:05 NLR (Rec: 11/11/24 13:49 NLR [email or web address]) E-signed By Cora Robbins DPT PT OP Daily Progress Note Visit Information Note Type Discharge Note Visit Number 4 Insurance Information Recert Due Date 01/19/25 Insurance Name Medicare B Medical Diagnosis Z96.641 Presence of R DIANNA Treating Diagnosis M25.551 Right hip pain M25.651 Right hip stiffness M62.551 Right thigh weakness Imaging Report 10/14/24 R DIANNA, WBAT; on DVT prophylaxis (Xarelto) for Information 30 days; dementia/needs 24 hour supervision for meds Referring MD Agustin Mariscal MD Subjective Preferred Name FORTINO Bar arrives for PT follow accompanied by her niece Selma. She has been in her own home for a week. She denies falls, can recall her exercises and states she is able to do all of her self cares including tying shoes. Pain Comments Thigh stiffness. No specific pain. Date of Last 10/21/24 Physician Visit Date of Next 11/26/24 Physician Visit Date of Surgery (If 10/14/24 applicable) Precautions Treatment Dementia, her confusion is worse right now following Precautions/ surgery so she is living with her niece temporarily. Contraindications Weight Bearing Weight Bear as Tolerated Status Home Exercise Home Exercise Reviewed, modified and progressed HEP today. Comments Access Code: [email or web address] URL: [email or web address] Date: 11/11/2024 Prepared by: Cora Robbins Exercises - Seated Shoulder Blade Squeeze - 2 sets - 10 reps - 2 -3 seconds hold - strength exercise type - Standing Hip Abduction with Counter Support - 2 x daily - 10 reps - Standing March with Counter Support - 2 x daily - 10 reps - Sit to Stand - 2 x daily - 10 reps Patient Education - Self-Mobilization with Rollers Objective Other/Pertinent HAND DOM: RHD Objective ROM: R hip 10 to 90 flexion, R LE WFL STRENGTH: R quads, hip abductors, hip adductors 3/5, L LE WFL POSTURE: Significant forward rounding with dowager's hump, has rods in mid back. PALPATION: Patient exhibits tenderness to palpation at R thigh EDEMA: R foot +2 mildly pitting - suggested 15-20mmHg compression sock FUNCTIONAL: Sit to/from stand modified I, sit to/from supine minimal assistance of one GAIT: Slow WBAT with FWW (adjusted down 2 notches as it was too high - still high but appropriate for her kyphosis), up and down 6 steps with minimal assistance of one and one railing FLEXIBILITY: Hypoflexibility noted at R hip flexors - resisting laying flat FOOTWEAR: Patient arrives wearing slip on moccasins OTHER PMH: Dementia, AFib Functional Test 10/28/24 Munoz Balance Score: 41 / 56 = 73.2 % - Performed & Score recommend at minimum one SPC for safety Patient Instructed Yes in Risks/Benefits Therapeutic Exercise Therapeutic Exercise 30 Minutes (minutes) Therapeutic Exercise - Shoulder blade squeezes for thoracic extension as she : To Restore feels she more forward with the cane Functional Status - Standing Hip Abduction with Counter Support - Standing March with Counter Support - Sit to Stand with armrests, slow and controlled - Self mobs of right quad and ITband below incision with rolling pin Gait & Stair Training Gait & Stair Patient is ambulating independently with one cane. She Training Comments denies falls or any difficulty with gait or stairs. Treatment Minutes Timed Code Treatment 30 Minutes Total Treatment Time 30 Billing Units Therapeutic Exercise 2 Units Assessment/Impression Assessment/ Fortino is doing well. She is at home alone and Impression reportedly doing well. She is independent in all self cares, walking safely with one cane and heing her HEP. All goals have been achieved, will DC today with finalized HEP. Primary Functional None Limitations Plan of Care Physical Therapy 1. Patient will be independent with home exercise Goals program as instructed, modified and progressed by physical therapist in order to be independently and actively participating in their rehabilitation and return to prior level of function. Goal to be achieved by 01/16/2025. ACHIEVED 2. Patient will demonstrate ability to walk for 30 minutes(s) without significant increase in pain greater than 2/10 to allow patient to be able to safely and independently return to participation in desired level of function with daily activities such general housekeeping, going to appointments, walking for exercise without pain or difficulty. Goal to be achieved by 01/16/2025. ACHIEVED 3. Patient will ascend/descend 2 full flight(s) of stairs with [id number] pattern without significant increase in difficulty or pain over 2/10 allowing for safe and independent mobility through their home/work environment. Goal to be achieved by 01/16/2025. ACHIEVED Daily Plan of Care Discharge Daily Plan of Care DC with HEP. Comments Discharge Note Discharge Summary Fortino is doing well. She is at home alone and reportedly doing well. She is independent in all self cares, walking safely with one cane and heing her HEP. All goals have been achieved, will DC today with finalized HEP. Date of First Visit 10/21/24 for Therapy Date of Last Visit 11/11/24 for Therapy Initial Primary Difficulty walking without gait aid, difficulty with Functional bed transfers, difficulty with stairs Limitations Initial Pain Level Incisional, difficult to quantify. Pain Level at 0/10 Discharge Recommendations/ Met All Therapy Goals Reason for Discharge Thank You For This Thank you for this physical therapy referral. Please Referral do not hesitate to contact us with any questions or concerns.
== END 2025-03-11 23:59 | disposition home or self-care (01) ==
PROVIDERS: PCP Nurse Practitioner Family; Visit Provider Orthopaedic Surgery
DX: Z47.1 Aftercare following joint replacement surgery (principal); Z96.641 Presence of right artificial hip joint; Z51.89 Encounter for other specified aftercare
CPT/HCPCS: 97110; 97112; 97116; 97162